=== PATIENT | female | born 1960 | race Caucasian/White ===

== ENCOUNTER 2016-11-13 19:06 | Emergency (ER) | payer MEDICAID, OTHER ==
[~2016-11-13] VITALS: Ht 167.6 cm; Wt 65.8 kg
[2016-11-13] MEDS ORDERED: IV SET PRIMARY 1 EA INFUS.SET MC ONE (19:30)
[2016-11-13] MEDS ORDERED: ONDANSETRON HCL/PF 4 MG/2 ML VIAL ONE (19:30)
[2016-11-13] MEDS ORDERED: ONDANSETRON HCL/PF 4 MG/2 ML VIAL IVP ONE (19:30)
[2016-11-13] MEDS ORDERED: IV NS 0.9% 1,000 ML BAG IV ONE (19:30)
[2016-11-13] MEDS ORDERED: IV NS 0.9% 1,000 ML ONE (19:31)
[2016-11-13 19:45] VITALS: BP 149/98
== END 2016-11-13 20:29 | disposition home or self-care (01) ==
LOC: ER 19:11
DX: R11.2 Nausea with vomiting, unspecified (principal); R19.7 Diarrhea, unspecified; Z88.5 Allergy status to narcotic agent; G89.29 Other chronic pain
CPT/HCPCS: 93005; 96361; 96374; 99284; A4606; J2405; J7030; Z7610

== ENCOUNTER 2018-03-21 08:11 | Emergency (ER) | payer MEDICAID, OTHER ==
[~2018-03-21] VITALS: Ht 167.6 cm; Wt 72.6 kg
--- NOTE | 2018-03-21 08:45 | NUR ---
AAOX3, CAME TO ER, WOKE UP AT 0500 FEELING NORMAL, NOW FEELING LIKE SHE CAN'T THINK CLEARLY SPEECH CLEAR, NO FOCAL DEFICITS, BILATERAL STRONG AND EQUAL SNACK BAR COOK. RR IS EVEN AND UNLABORED WITH NAD NOTED. SKIN IS WARM AND DRY. PLACED ON THE MONITOR. WILL CONTINUOUSLY MONITOR THE PATIENT. DR DARLING AT FOR EVAL.
[2018-03-21 08:52] LABS: BASOPHILS % (AUTO) 0.7 % (0.0-2.0); HEMATOCRIT 45 % (33-45); HEMOGLOBIN 15.7 g/dL (11.5-14.8); LYMPHOCYTES # (AUTO) 1.5 /CMM (0.8-4.8); LYMPHOCYTES % (AUTO) 28.8 % (20.0-44.0); MEAN CORPUSCULAR HEMOGLOBIN 33 PG (26.0-33.0); MEAN CORPUSCULAR HGB CONC 35 g/dl (31.0-36.0); MEAN CORPUSCULAR VOLUME 92 fL (82-100); MONOCYTES # (AUTO) 0.5 /CMM (0.1-1.30); MONOCYTES % (AUTO) 9.6 % (2.0-12.0); NEUTROPHILS # (AUTO) 3.1 /CMM (1.8-8.9); NEUTROPHILS % (AUTO) 58.9 % (43.0-81.0); PLATELET COUNT (AUTO) 275 /CMM (150-450); RDW COEFFICIENT OF VARIATION 12.8 (11.5-15.0); RED BLOOD CELL COUNT(AUTO) 4.85 MIL/uL (4.0-5.2); WHITE BLOOD COUNT (AUTO) 5.2 K/uL (4.3-11.0)
[2018-03-21] MEDS ORDERED: BENZOIN COMPOUND TINCT 60 ML BOTTLE ONE (08:56)
[2018-03-21] MEDS ORDERED: IV NS 0.9% 1,000 ML BAG IV ONE (09:00)
[2018-03-21 09:04] LABS: CALCIUM, SERUM 9.6 mg/dL (8.5-10.1); CARBON DIOXIDE 24 mmol/L (21-32); CHLORIDE 106 mmol/L (98-107); CREATININE 0.8 mg/dL (0.6-1.3); GLUCOSE 106 mg/dL (74-106); POTASSIUM 3.8 mmol/L (3.5-5.1); SODIUM SERUM 137 mmol/L (136-145); UREA NITROGEN, BLOOD 10 mg/dL (7-18)
[2018-03-21 09:11] LABS: ALANINE AMINOTRANSFERASE 40 U/L (12-78); ALBUMIN 3.9 g/dL (3.4-5.0); ALKALINE PHOSPHATASE 57 U/L (46-116); ASPARTATE AMINOTRANSFERASE 19 U/L (15-37); BILIRUBIN,DIRECT 0.1 mg/dL (0.0-0.2); BILIRUBIN,TOTAL 0.6 mg/dL (0.2-1.0); TOTAL PROTEIN, SERUM 7.3 g/dL (6.4-8.2)
[2018-03-21 09:12] LABS: TROPONIN I < 0.017 ng/mL (0.00-0.056)
[2018-03-21 09:14] LABS: APPEARANCE,URINE Clear (CLEAR); BILIRUBIN,URINE Negative (NEGATIVE); BLOOD, URINE Negative Ery/uL (NEGATIVE); COLOR,URINE Yellow (YELLOW); KETONES,URINE Negative (NEGATIVE); LEUKOCYTE ESTERASE ,URINE Negative (NEGATIVE); NITRITE, URINE Negative (NEGATIVE); PH,URINE 7.5 (5.0-8.0); PROTEIN,URINE Negative (NEGATIVE); UGLUCOSE Negative (NEGATIVE); UROBILINOGEN,URINE 0.2 EU/dL (0.2)
[2018-03-21 09:18] LABS: INR 0.97 (0.87-1.13)
--- NOTE | 2018-03-21 09:30 | NUR ---
Patient is resting comfortably in bed with eyes closed. Easily aroused. VSS
[2018-03-21 10:09] VITALS: BP 152/96
--- NOTE | 2018-03-21 10:10 | NUR ---
IV removed. Catheter intact and site benign. Pressure and 4x4 applied to site. No bleeding noted.Patient discharged to home in stable condition. Written and verbal after care instructions given. Patient verbalizes understanding of instruction.
== END 2018-03-21 10:13 | disposition home or self-care (01) ==
LOC: ER 08:19
DX: R41.82 Altered mental status, unspecified (principal); G89.29 Other chronic pain; F10.10 Alcohol abuse, uncomplicated; Z60.2 Problems related to living alone; R79.1 Abnormal coagulation profile; Z88.5 Allergy status to narcotic agent; Y90.9 Presence of alcohol in blood, level not specified
CPT/HCPCS: 36415; 70450; 80048; 80076; 80305; 81001; 84484; 85025; 85730; 93005; 99285; A4606; J7030; Z7610; 81000-TC

== ENCOUNTER 2020-08-21 18:47 | Emergency (ER) | payer MEDICAID, OTHER ==
[~2020-08-21] VITALS: Ht 167.6 cm; Wt 68.0 kg
[2020-08-21 19:14] VITALS: BP 168/108
[2020-08-21] MEDS ORDERED: ACETAMINOPHEN ES 500 MG TABLET ONE (19:40)
--- NOTE | 2020-08-21 19:44 | NUR ---
XRAY AT BEDSIDE
[2020-08-21] MEDS ORDERED: ACETAMINOPHEN 325 MG TABLET PO ONE (20:00)
[2020-08-21] MEDS ORDERED: TRAMADOL HCL 50 MG TABLET ONE (20:30)
[2020-08-21] MEDS ORDERED: TRAMADOL HCL 50 MG TABLET PO ONE (20:30)
[2020-08-21] MEDS ORDERED: ONDANSETRON 4 MG TAB.RAPDIS PO ONE (20:30)
[2020-08-21] MEDS ORDERED: ONDANSETRON 4 MG TAB.RAPDIS ONE (20:31)
== END 2020-08-21 20:58 | disposition home or self-care (01) ==
LOC: ER 18:53
DX: S20.212A Contusion of left front wall of thorax, initial encounter (principal); W08.XXXA Fall from other furniture, initial encounter; Y93.E9 Activity, other interior property and clothing maintenance; Y92.039 Unspecified place in apartment as the place of occurrence of the external cause; Z20.828 Contact with and (suspected) exposure to other viral communicable diseases; I10 Essential (primary) hypertension
CPT/HCPCS: 71100; 99284; C9803; Q0162; U0003